=== PATIENT | male | born 1980 | race African-American/Black ===

== ENCOUNTER 2021-11-18 10:53 | Emergency (ER) | payer OTHER, SELFPAY ==
[2021-11-18 11:03] VITALS: BP 134/93; PULSE 83; RESP 16; TEMP 36.6; O2SAT 98
[2021-11-18 11:04] VITALS: BP 134/93; PULSE 83; RESP 16; TEMP 36.6; O2SAT 98
--- NOTE | 2021-11-18 11:11 | ED.ABDPAIN ---
HPI - Abdominal Pain General Chief Complaint: Abdominal Pain Stated Complaint: diarrhea/blood in stool Time Seen by Provider: 11/18/21 11:11 Source: patient Mode of arrival: ambulatory Limitations: no limitations History of Present Illness HPI narrative: 41-year-old male presents with complaint of abdominal cramping, blood in stool. Reports this morning around 6 AM he woke up and had a large bowel movement that caused him to strain. When he got to work he had to have a bowel movement again. Reports he was straining because he needed to hurry up and get back to work. When he wiped he saw bright red blood. Denies hemorrhoids. No other symptoms. Patient made appointment with his primary care physician for Tuesday at 1 PM. Here for a work note. All systems reviewed negative except as noted above. Related Data Home Medications Medication Instructions Recorded Confirmed amlodipine 11/18/21 carbamazepine 11/18/21 gabapentin 11/18/21 tramadol mg 11/18/21 Allergies Allergy/AdvReac Type Severity Reaction Status Date / Time lisinopril Allergy Severe Swelling Verified 07/11/19 18:13 of Lip/Tongue/Throat Review of Systems Review of Systems: CONSTITUTIONAL: Denies fever, chills, or sweats. EYES: Denies visual changes, redness, or discharge. ENT: Denies rhinorrhea, congestion, sore throat, or otalgia. CARDIOVASCULAR: Denies chest pain, palpitations, or edema. RESPIRATORY: Denies cough or dyspnea. GASTROINTESTINAL: Reports abdominal pain and blood in stool. Denies nausea, vomiting, or diarrhea. GENITOURINARY: Denies dysuria or hematuria. SKIN: Denies rash or itching. MUSCULOSKELETAL: Denies back pain, joint pain, or myalgia. NEUROLOGIC: Denies headache, numbness, or weakness. PSYCHIATRIC: Denies anxiety or depression. All other systems reviewed are negative, except as documented in HPI. PMFSH Comments At time of signature, agree with nursing past medical, surgical, social and family history. There is no relevant family history pertinent to the presenting complaint. Exam Narrative: GENERAL: This is a well-nourished, well-developed patient, in no apparent distress. HEAD: normocephalic, atraumatic. EYES: PERRL. Sclera clear/white. Vision is grossly intact. EARS: External ears normal, NOSE: External nose normal with no obvious nasal discharge THROAT: Mucous membranes moist NECK: Neck supple, non-tender without lymphadenopathy, masses or thyromegaly. CARDIOVASCULAR: Regular rate and rhythm without murmurs, gallops, or rubs. RESPIRATORY: Clear to auscultation. Breath sounds equal bilaterally. No wheezes, rales, or rhonchi. GASTROINTESTINAL: Abdomen soft, non-tender, nondistended. Bowel sounds are active. No hepato-splenomegaly, or palpable masses. No guarding. Deferred rectal exam. SKIN: warm, Dry, intact with no suspicious lesions or rash, good texture and turgor. NEURO: awake, alert, and oriented to person, place and time. There were no obvious focal neurologic abnormalities. EXTREMITIES: No joint tenderness, effusion, or edema noted. BACK: Nontender without deformity. No CVA tenderness. Course Course Level of Care: Express Care Visit Vital Signs Vital signs: Vital Signs Temperature 36.6 C 11/18/21 11:03 Pulse Rate 83 11/18/21 11:03 Respiratory Rate 16 11/18/21 11:03 Blood Pressure 134/93 H 11/18/21 11:03 Pulse Oximetry 98 11/18/21 11:03 Temperature 36.6 C 11/18/21 11:04 Pulse Rate 83 11/18/21 11:04 Respiratory Rate 16 11/18/21 11:04 Blood Pressure 134/93 H 11/18/21 11:04 Pulse Oximetry 98 11/18/21 11:04 Reviewed MDM - Abdominal Pain MDM Narrative Medical decision making narrative: Patient refused rectal exam. Denies hemorrhoids. Currently has no bleeding from rectum. Has appointment with his primary care physician. Stating he is just here for a work note. Patient is aware of diagnosis, understands and agrees to treatment plan. Anticipatory guidance given.
== END 2021-11-18 11:27 | disposition home or self-care (01) ==
PROVIDERS: Emergency Provider Nurse Practitioner Family
DX: K92.1 Melena (principal); I10 Essential (primary) hypertension
CPT/HCPCS: 99211; G0463

== ENCOUNTER 2025-02-04 08:12 | Emergency (ER) | payer MEDICAID, SELFPAY ==
--- NOTE | 2025-02-04 08:17 | ED.EAR ---
HPI - Ear Problem General Chief complaint: Ear Stated complaint: Left Ear Irritation Time Seen by Provider: 02/04/25 08:25 Source: patient Mode of arrival: ambulatory Limitations: no limitations History of Present Illness HPI Narrative: Johnathan is a 44-year-old male patient presenting to the clinic today with complaints of left ear pain/decreased hearing x3 days. He reports he has had cough and nasal congestion. Denies any shortness of breath or chest pain. Denies any fevers, chills, body aches. Related Data Home Medications ?Medication ?Instructions ?Recorded ?Confirmed ?Last Taken ?Type amlodipine 10 mg tablet 11/18/21 Unknown History diclofenac sodium 25 mg 25 mg PO ONCE 02/04/25 Unknown History tablet,delayed release famotidine PO 02/04/25 Unknown History Allergies Allergy/AdvReac Type Severity Reaction Status Date / Time lisinopril Allergy Severe Swelling Verified 02/04/25 08:29 of Lip/Tongue/Throat Review of Systems Review of Systems: Pertinent positives per HPI. Patient denies any fever, chills, rash, headache, visual changes, dizziness, cough, shortness of breath, chest pain, palpitations, nausea, vomiting, diarrhea, constipation, abdominal pain, or any urinary issues. PMFSH Comments At the time of my signature, I reviewed and agree with the nursing past medical, surgical, social, and family history. There is no relevant family history pertinent to the patient complaint. Exam Narrative: General: Well-developed, well nourished, in no apparent distress Head: Normocephalic, atraumatic Eyes: Pupils equally round and reactive to light bilaterally, EOM intact, sclera and conjunctive clear, no discharge, lids normal Ears: Right TM intact and congested, left TM intact, bulging, red, ear canals clear, no drainage, grossly hearing normal. Nose: Nares patent, clear nasal discharge, no inflammation, no sinus tenderness. Mouth: Oral pharynx without lesions or masses, good dentition, MMM. Neck: Supple, trachea midline, no enlargement of anterior or posterior cervical nodes, no thyroid masses or goiter palpable. Cardio: Regular rate and rhythm, s1 and s2 normal, no murmur appreciated. Resp: Clear to auscultation bilaterally, no rhonchi, rales, wheezing or rubs Course Course Emergency Course: Portions of this record may have been created with voice recognition software. Level of Care: Express Care Visit Vital Signs Vital signs: Vital Signs Temperature 36.7 C 02/04/25 08:24 Pulse Rate 80 02/04/25 08:24 Respiratory Rate 16 02/04/25 08:24 Blood Pressure 124/95 H 02/04/25 08:24 Pulse Oximetry 98 02/04/25 08:24 Oxygen Delivery Room Air 02/04/25 08:24 Temperature 36.7 C 02/04/25 08:24 Pulse Rate 80 02/04/25 08:24 Respiratory Rate 16 02/04/25 08:24 Blood Pressure 124/95 H 02/04/25 08:24 Pulse Oximetry 98 02/04/25 08:24 Oxygen Delivery Room Air 02/04/25 08:24 Vital signs reviewed Medical Decision Making MDM Narrative Medical decision making narrative: At the time of visit patient is resting comfortably on the exam table. Patient appears to be nontoxic. Plan: I suspect patient has bronchitis/left otitis media. Prescription for amoxicillin and albuterol inhaler was sent to pharmacy. Supportive measures were discussed with the patient and they voiced understanding discharge instructions and agrees to treatment plan. Return precautions reviewed Differential Diagnosis Differential Diagnosis: Otitis media, otitis externa, eustachian tube dysfunction, cerumen impaction, upper respiratory infection, serous otitis Vital Signs Vital Signs: Vital Signs Temperature 36.7 C 02/04/25 08:24 Pulse Rate 80 02/04/25 08:24 Respiratory Rate 16 02/04/25 08:24 Blood Pressure 124/95 H 02/04/25 08:24 Pulse Oximetry 98 02/04/25 08:24 Oxygen Delivery Room Air 02/04/25 08:24 Temperature 36.7 C 02/04/25 08:24 Pulse Rate 80 02/04/25 08:24 Respiratory Rate 16 02/04/25 08:24 Blood Pressure 124/95 H 02/04/25 08:24 Pulse Oximetry 98 02/04/25 08:24 Oxygen Delivery Room Air 02/04/25 08:24 Discharge Plan Discharge Clinical Impression: Acute left otitis media, Bronchitis Patient Disposition: Home Condition: Stable Instructions: Antibiotic Form, Ear Infection (ED), Acute Bronchitis (ED) Additional Instructions: Take prescription medications only as prescribed-albuterol inhaler and amoxicillin Increase fluids and stay well hydrated Tylenol/motrin for pain/fever Flonase and OTC antihistamines as directed Vicks vapor rub to open sinuses Sinus rinses for congestion Cepacol spray, cough drops, throat lozenges, warm tea with honey/lemon, gargle salt water to soothe throat BRAT diet for diarrhea Clear liquids x 24 hours then advance as tolerated for nausea/vomiting Go to the ED if you develop a worsening in your condition- high fever not controlled by Tylenol or Motrin, dehydration, weakness, lethargy, shortness of breath, or chest pain. Follow up with your PCP in 3-5 days if symptoms persist. Patient Language: Spanish Prescriptions: New albuterol sulfate 90 mcg/actuation HFA aerosol inhaler 2 puff inhalation Q4-6H PRN (Reason: shortness of breath or wheezing) 30 Days Qty: 8.5 0RF amoxicillin 875 mg tablet 875 mg PO Q12H 7 Days Qty: 14 0RF No Action albuterol sulfate [ProAir HFA] 90 mcg/actuation HFA aerosol inhaler 2 puff INHALATION QID PRN (Reason: shortness of breath or wheezing) Qty: 6.7 0RF tramadol 50 mg tablet carbamazepine 200 mg tablet amlodipine 10 mg tablet gabapentin 300 mg capsule Follow-up/Referrals: Мария,Torrie Saleem MD [Primary Care Provider] - Time of Disposition: 08:28 Quality NIHSS Nursing Documentation ED NIHSS nursing documentation: reviewed/agree
[2025-02-04 08:24] VITALS: BP 124/95; PULSE 80; RESP 16; TEMP 36.7; O2SAT 98
== END 2025-02-04 08:37 | disposition home or self-care (01) ==
PROVIDERS: Emergency Provider Nurse Practitioner Family; PCP Internal Medicine
DX: H66.92 Otitis media, unspecified, left ear (principal); J40 Bronchitis, not specified as acute or chronic; I10 Essential (primary) hypertension; I71.00 Dissection of unspecified site of aorta; K21.9 Gastro-esophageal reflux disease without esophagitis
CPT/HCPCS: 99213; G0463